=== PATIENT | female | born 2000 | race Caucasian/White ===

== ENCOUNTER → 2024-07-01 | Outpatient (CLI) | payer OTHER, SELFPAY ==
[2024-07-04 23:06] LABS: G6PD Quant Test 272 (155-399); Red Blood Cell Count Test/G6PD 5.49 x10E6/uL (3.77-5.28)
== END | disposition home or self-care (01) ==
LOC: LABSPEC 12:38
PROVIDERS: PCP Nurse Practitioner Family; Referring Provider Nurse Practitioner Family; Visit Provider Nurse Practitioner Family
DX: A44.0 Systemic bartonellosis (principal); R53.82 Chronic fatigue, unspecified; R61 Generalized hyperhidrosis; G90.A Postural orthostatic tachycardia syndrome [POTS]; G89.29 Other chronic pain
CPT/HCPCS: 82955